=== PATIENT | female | born 2000 | race Asian ===

== ENCOUNTER → 2018-11-10 15:11 | Outpatient (CLI) | payer BC, SELFPAY ==
[2018-11-10 17:28] LABS: Urine N gonorrhoeae NOT DETECTED
[2018-11-10 17:31] LABS: Urine Chlamydia NOT DETECTED
== END ==
PROVIDERS: Visit Provider Physician Assistant
DX: N39.0 Urinary tract infection, site not specified (principal); R31.9 Hematuria, unspecified; R30.0 Dysuria
CPT/HCPCS: 87077; 87086; 87186; 87491; 87591

== ENCOUNTER 2020-11-24 12:39 | Emergency (ER) | payer BC, SELFPAY ==
[2020-11-24] VITALS (13 sets, daily range): BP systolic 123–154; BP diastolic 73–90; PULSE 62–91; RESP 16; TEMP 36.8; O2SAT 97–100; BMI 22.6
[2020-11-24 13:09] LABS: Add Manual Diff / Slide Review NO; Basophils Absolute Auto 100 /uL (0-100); Basophils Percent Auto 0.6 % (0-2); Eosinophils Absolute Auto 0 /uL (0-450); Eosinophils Percent Auto 0.1 % (2-4); Hematocrit 37.1 % (36-46); Hemoglobin 11.8 g/dL (12.0-16.0); Lymphocytes Absolute Auto 1000 /uL (1100-4500); Lymphocytes Percent Auto 8.2 % (25-40); Mean Corpuscular HGB Conc 31.9 % (30-36); Mean Corpuscular Hemoglobin 25.8 PG (26-34); Mean Corpuscular Volume 80.9 fL (80-100); Monocytes Absolute Auto 900 /uL (0-900); Monocytes Percent Auto 7.2 % (3-14); Neutrophils Absolute Auto 10700 /uL (1500-7000); Neutrophils Percent Auto 83.9 % (50-75); Platelet Count 289 X10^3/uL (150-400); Red Blood Cell Count 4.59 X10^6/uL (4.0-5.2); White Blood Cell Count 12.8 X10^3/uL (4.5-11.0)
[2020-11-24] MEDS: SODIUM CHLORIDE 0.9% 1,000 ML 1000 ML IV ×2 (13:13→14:03)
[2020-11-24 13:22] LABS: Alanine Aminotransferase 20 IU/L (<35); Albumin 4.4 g/dL (3.5-5.0); Albumin Globulin Ratio 1.3 (1.0-2.8); Alkaline Phosphatase 109 U/L (38-126); Aspartate Aminotransferase 36 IU/L (14-36); BUN Creatinine Ratio 11.7 (6-22); Bilirubin Total 0.5 mg/dL (0.2-1.3); Blood Urea Nitrogen 19 mg/dL (7-17); Calcium 9.8 mg/dL (8.4-10.2); Carbon Dioxide 23 mmol/L (22-32); Chloride 107 mmol/L (98-107); Estimated Glomerular Filt Rate 39.7 mL/min (>60); Globulin 3.5 g/dL (1.7-4.1); Glucose 107 mg/dL (70-100); HEMOLYSIS < 15 (0-50); Lipase 77 U/L (23-300); Potassium 3.9 mmol/L (3.4-5.1); Sodium 138 mmol/L (137-145); Total Protein 7.9 g/dL (6.3-8.2)
--- NOTE | 2020-11-24 13:36 | ED_ITS ---
HPI - Abdominal Pain <Al Elliott PA-C - Last Filed: 11/24/20 18:35> General Chief Complaint: Abdominal Pain Stated Complaint: Stomach Pain, Vomiting Time Seen by Provider: 11/24/20 12:46 Source: patient Mode of arrival: Ambulatory Limitations: no limitations History of Present Illness HPI narrative: Nat presents today with chief complaint of abdominal pain and nausea with vomiting that started abruptly this morning after she woke up. She reports that the abdominal pain was generalized at her cyst but seems to be more to the right side of her abdomen now. She has not experienced anything like this in the past. Her last menses was 3 weeks ago. She is currently on control. She denies any vaginal irritation, bleeding, fever, diarrhea, constipation, urinary symptoms, chest pain, cough or any other acute concerns or complaints at this time. She went to a walk-in clinic in [place] and was given some Zofran for her vomiting. This helped the nausea but they recommended that she come here for evaluation of appendicitis. Related Data Home Medications Medication Instructions Recorded Confirmed norethindrone acetate 1.5 1 tab PO DAILY 11/10/18 11/10/18 mg-ethinyl estradiol 30 mcg tablet (Junel) Previous Rx's Medication Instructions Recorded sulfamethoxazole 800 1 tab PO BID #14 tab 11/10/18 mg-trimethoprim 160 mg tablet (Bactrim DS) ondansetron 4 mg disintegrating 4 mg PO Q6H PRN #14 tab 11/24/20 tablet Allergies Allergy/AdvReac Type Severity Reaction Status Date / Time No Known Drug Allergies Allergy Verified 11/10/18 14:01 Review of Systems <Al Elliott PA-C - Last Filed: 11/24/20 18:35> Review of Systems Narrative: As per HPI Patient History <Al Elliott PA-C - Last Filed: 11/24/20 18:35> Social History Smoking Status: Never smoker Smoking Status: Never smoker Substance Use Type: does not use Exam <Al Elliott PA-C - Last Filed: 11/24/20 18:35> Narrative Exam Narrative: Exam Narrative: Const General: cooperative, healthy appearing, comfortable, no acute distress, well developed and well groomed Nutritional Appearance: average body habitus Orientation: alert and oriented x3 HENMT Head: normal to inspection and atraumatic Ears: hearing grossly normal bilaterally Nose: external nose normal and nares normal Face and sinus: normal facial exam Neck Neck: normal visual inspection and supple Resp Effort & Inspection: normal respiratory effort, able to speak in complete sen tences, no audible wheezes, not labored, no nasal flaring and no respiratory distress Cardiac Regular rate and rhythm, no discernible murmurs, rubs or gallops GI Normal bowel sounds, Nondistended, tender to palpation in the right mid and lower quadrants. Rebound tenderness noted. Negative Rovsing sign. No CVA tenderness noted. Neuro General: alert, oriented x3, gait normal, tone normal and moves all extremities Cognition: normal cognition Speech: speech normal Gait: normal gait Psych Appearance: grossly normal and well kempt Mental Status: mental status grossly normal Speech and Movement: speech and movement normal Mood: congruent mood Affect: normal affect Initial Vital Signs Initial Vital Signs: Vital Signs Pulse Rate 62 11/24/20 12:47 Blood Pressure 137/87 11/24/20 12:47 Pulse Oximetry 99 11/24/20 12:47 <Cristiano Talamantes DO - Last Filed: 11/24/20 18:46> Initial Vital Signs Initial Vital Signs: Vital Signs Pulse Rate 62 11/24/20 12:47 Blood Pressure 137/87 11/24/20 12:47 Pulse Oximetry 99 11/24/20 12:47 Course <Al Elliott PA-C - Last Filed: 11/24/20 18:35> Course Course Narrative: I spoke with Dr. Castillo with Nephrology regarding this patient. Presentation, laboratory evaluation, CT scan results and current situation was discussed. He recommended no antibiotic treatment at this time because there is no significant evidence of infection. He stated this is likely due to acute nausea and vomiting. Orders Ordered: ED Orders 11/24/20 12:57 Complete Blood Count AUTO DIFF Stat Comprehensive Metabolic Panel Stat Lipase Stat Test Serum,Qual Stat 11/24/20 13:40 CT abdomen pelvis w con Stat 11/24/20 14:35 Urinalysis and Microscopic Stat 11/24/20 16:22 COVID19 -Nasal swab/Pre-Proc Stat Discontinued Medications Sodium Chloride (Normal Saline 0.9%) 1,000 mls @ 1,000 mls/hr IV BOLUS ONE Stop: 11/24/20 14:02 Last Infusion: 11/24/20 14:01 Dose: 0 mls/hr Documented by: Admin: 11/24/20 13:13 Dose: 1,000 mls/hr Documented by: MINDY Sodium Chloride (Normal Saline 0.9%) 1,000 mls @ 1,000 mls/hr IV BOLUS ONE Stop: 11/24/20 14:58 Last Infusion: 11/24/20 15:53 Dose: 0 mls/hr Documented by: Admin: 11/24/20 14:03 Dose: 1,000 mls/hr Documented by: MINDY Morphine Sulfate (Morphine 2 Mg/Ml Inj) 2 mg IV Q4HR PRN PRN Reason: Pain, Moderate (4-6) Last Admin: 11/24/20 14:42 Dose: 2 mg Documented by: MINDY Morphine Sulfate (Morphine 2 Mg/Ml Inj) 2 mg IV Q4HR PRN PRN Reason: Pain, Moderate (4-6) Last Admin: 11/24/20 16:17 Dose: 2 mg Documented by: FRANCIA Vital Signs Vital signs: Vital Signs - 8 hr 11/24/20 12:47 11/24/20 12:59 11/24/20 13:00 Temperature 98.3 F Pulse Rate 62 65 63 Respiratory Rate 16 Blood Pressure 137/87 137/87 128/88 Pulse Oximetry 99 99 100 11/24/20 13:30 11/24/20 14:07 11/24/20 14:30 Temperature Pulse Rate 66 91 H 79 Respiratory Rate Blood Pressure 130/80 Pulse Oximetry 100 97 99 11/24/20 14:39 11/24/20 15:00 11/24/20 15:30 Temperature Pulse Rate 78 72 68 Respiratory Rate Blood Pressure 135/83 132/83 140/87 Pulse Oximetry 100 100 100 11/24/20 16:00 11/24/20 16:13 11/24/20 16:30 Temperature Pulse Rate 64 63 62 Respiratory Rate Blood Pressure 154/90 H 123/73 Pulse Oximetry 100 100 100 11/24/20 17:00 Temperature Pulse Rate 65 Respiratory Rate Blood Pressure 144/85 H Pulse Oximetry 99 <Cristiano Talamantes DO - Last Filed: 11/24/20 18:46> Orders Ordered: ED Orders 11/24/20 12:57 Complete Blood Count AUTO DIFF Stat Comprehensive Metabolic Panel Stat Lipase Stat Test Serum,Qual Stat 11/24/20 13:40 CT abdomen pelvis w con Stat 11/24/20 14:35 Urinalysis and Microscopic Stat 11/24/20 16:22 COVID19 -Nasal swab/Pre-Proc Stat Discontinued Medications Sodium Chloride (Normal Saline 0.9%) 1,000 mls @ 1,000 mls/hr IV BOLUS ONE Stop: 11/24/20 14:02 Last Infusion: 11/24/20 14:01 Dose: 0 mls/hr Documented by: Admin: 11/24/20 13:13 Dose: 1,000 mls/hr Documented by: MINDY Sodium Chloride (Normal Saline 0.9%) 1,000 mls @ 1,000 mls/hr IV BOLUS ONE Stop: 11/24/20 14:58 Last Infusion: 11/24/20 15:53 Dose: 0 mls/hr Documented by: Admin: 11/24/20 14:03 Dose: 1,000 mls/hr Documented by: MINDY Morphine Sulfate (Morphine 2 Mg/Ml Inj) 2 mg IV Q4HR PRN PRN Reason: Pain, Moderate (4-6) Last Admin: 11/24/20 14:42 Dose: 2 mg Documented by: MINDY Morphine Sulfate (Morphine 2 Mg/Ml Inj) 2 mg IV Q4HR PRN PRN Reason: Pain, Moderate (4-6) Last Admin: 11/24/20 16:17 Dose: 2 mg Documented by: FRANCIA Vital Signs Vital signs: Vital Signs - 8 hr 11/24/20 12:47 11/24/20 12:59 11/24/20 13:00 Temperature 98.3 F Pulse Rate 62 65 63 Respiratory Rate 16 Blood Pressure 137/87 137/87 128/88 Pulse Oximetry 99 99 100 11/24/20 13:30 11/24/20 14:07 11/24/20 14:30 Temperature Pulse Rate 66 91 H 79 Respiratory Rate Blood Pressure 130/80 Pulse Oximetry 100 97 99 11/24/20 14:39 11/24/20 15:00 11/24/20 15:30 Temperature Pulse Rate 78 72 68 Respiratory Rate Blood Pressure 135/83 132/83 140/87 Pulse Oximetry 100 100 100 11/24/20 16:00 11/24/20 16:13 11/24/20 16:30 Temperature Pulse Rate 64 63 62 Respiratory Rate Blood Pressure 154/90 H 123/73 Pulse Oximetry 100 100 100 11/24/20 17:00 Temperature Pulse Rate 65 Respiratory Rate Blood Pressure 144/85 H Pulse Oximetry 99 MDM - Abdominal Pain <Al Elliott PA-C - Last Filed: 11/24/20 18:35> Lab Data Result diagrams: 11/24/20 12:57 11/24/20 12:57 Labs: Lab Results 11/24/20 11/24/20 11/24/20 Range/Units 12:57 12:57 12:57 WBC 12.8 H (4.5-11.0) X10^3/uL RBC 4.59 (4.0-5.2) X10^6/uL Hgb 11.8 L (12.0-16.0) g/dL Hct 37.1 (36-46) % MCV 80.9 (80-100) fL MCH 25.8 L (26-34) PG MCHC 31.9 (30-36) % RDW 14.0 (11.6-14.8) % Plt Count 289 (150-400) X10^3/uL Neut % (Auto) 83.9 H (50-75) % Lymph % (Auto) 8.2 L (25-40) % [place] % (Auto) 7.2 (3-14) % Eos % (Auto) 0.1 L (2-4) % Baso % (Auto) 0.6 (0-2) % Neut # (Auto) 20123 H (9582-7917) /uL Lymph # (Auto) 1000 L (4676-2034) /uL Sutton # (Auto) 900 (0-900) /uL Eos # (Auto) 0 (0-450) /uL Baso # (Auto) 100 (0-100) /uL Sodium 138 (137-145) mmol/L Potassium 3.9 (3.4-5.1) mmol/L Chloride 107 (98-107) mmol/L Carbon Dioxide 23 (22-32) mmol/L BUN 19 H (7-17) mg/dL Creatinine 1.62 H (0.52-1.04) mg/dL Estimated GFR 39.7 L (>60) mL/min BUN/Creatinine Ratio 11.7 (6-22) Glucose 107 H (70-100) mg/dL Calcium 9.8 (8.4-10.2) mg/dL Total Bilirubin 0.5 (0.2-1.3) mg/dL AST 36 (14-36) IU/L ALT 20 (<35) IU/L Alkaline Phosphatase 109 (38-126) U/L Total Protein 7.9 (6.3-8.2) g/dL Albumin 4.4 (3.5-5.0) g/dL Globulin 3.5 (1.7-4.1) g/dL Albumin/Globulin Ratio 1.3 (1.0-2.8) Lipase 77 (23-300) U/L Serum , Qual Negative (Negative) Urine Color Urine Appearance Urine pH (4.5-8.0) Ur Specific [place] (1.000-1.035) Urine Protein (Negative) Urine Glucose (UA) (Negative) g/dL Urine Ketones (NEGATIVE) Urine Occult Blood (Negative) Urine Nitrate (Negative) Urine Bilirubin (NEGATIVE) Urine Urobilinogen (0.2) E.U./dL Ur Leukocyte Esterase (NEGATIVE) Urine RBC (0-5/HPF) Urine WBC (0-5/HPF) Ur Squamous Epith Cells (0-5/HPF) Urine Bacteria (None) Ur Culture Indicated? SARS-CoV-2 (PCR) (Negative) 11/24/20 11/24/20 Range/Units 14:35 16:22 WBC (4.5-11.0) X10^3/uL RBC (4.0-5.2) X10^6/uL Hgb (12.0-16.0) g/dL Hct (36-46) % MCV (80-100) fL MCH (26-34) PG MCHC (30-36) % RDW (11.6-14.8) % Plt Count (150-400) X10^3/uL Neut % (Auto) (50-75) % Lymph % (Auto) (25-40) % [place] % (Auto) (3-14) % Eos % (Auto) (2-4) % Baso % (Auto) (0-2) % Neut # (Auto) (5722-3765) /uL Lymph # (Auto) (7562-3817) /uL Sutton # (Auto) (0-900) /uL Eos # (Auto) (0-450) /uL Baso # (Auto) (0-100) /uL Sodium (137-145) mmol/L Potassium (3.4-5.1) mmol/L Chloride (98-107) mmol/L Carbon Dioxide (22-32) mmol/L BUN (7-17) mg/dL Creatinine (0.52-1.04) mg/dL Estimated GFR (>60) mL/min BUN/Creatinine Ratio (6-22) Glucose (70-100) mg/dL Calcium (8.4-10.2) mg/dL Total Bilirubin (0.2-1.3) mg/dL AST (14-36) IU/L ALT (<35) IU/L Alkaline Phosphatase (38-126) U/L Total Protein (6.3-8.2) g/dL Albumin (3.5-5.0) g/dL Globulin (1.7-4.1) g/dL Albumin/Globulin Ratio (1.0-2.8) Lipase (23-300) U/L Serum , Qual (Negative) Urine Color Yellow Urine Appearance Clear Urine pH 5.5 (4.5-8.0) Ur Specific [place] <=1.005 (1.000-1.035) Urine Protein Trace H (Negative) Urine Glucose (UA) Negative (Negative) g/dL Urine Ketones Negative (NEGATIVE) Urine Occult Blood Negative (Negative) Urine Nitrate Negative (Negative) Urine Bilirubin Negative (NEGATIVE) Urine Urobilinogen 0.2 (0.2) E.U./dL Ur Leukocyte Esterase Negative (NEGATIVE) Urine RBC None seen (0-5/HPF) Urine WBC 0-1/hpf (0-5/HPF) Ur Squamous Epith Cells 0-1 /hpf (0-5/HPF) Urine Bacteria Few (2-10) H (None) Ur Culture Indicated? Cult not indicated SARS-CoV-2 (PCR) Negative (Negative) Point of care testing: Urine Dip Bedside Urine Glucose Negative Bedside Urine Bilirubin - Negative Bedside Urine Ketone - Negative Urine Specific [place] 1.010 Bedside Urine Occult Blood - Negative Bedside Urine pH 6 Bedside Urine Protein - Negative Bedside Urine Urobilinogen - Negative Bedside Urine Nitrite - Negative Bedside Urine Leukocytes - Negative Esterase [facility] Narrative Medical decision making narrative: Differential diagnosis includes acute pyelonephritis, acute appendicitis, cholecystitis, acute pancreatitis, bowel obstruction, gastroenteritis. No obvious source of infection identified at this time. Urinalysis is within normal limits. She appears to have acute kidney inj ury. She has not had any episodes of nausea vomiting here in the emergency department and has gotten IV hydration for fluid replenishment. We will treat with anti emetics and she agreed to follow up in 2 days to get repeat labs to assess kidney function. Strict ER return precautions were discussed with the patient. <Cristiano Talamantes DO - Last Filed: 11/24/20 18:46> Lab Data Labs: Lab Results 11/24/20 11/24/20 11/24/20 Range/Units 12:57 12:57 12:57 WBC 12.8 H (4.5-11.0) X10^3/uL RBC 4.59 (4.0-5.2) X10^6/uL Hgb 11.8 L (12.0-16.0) g/dL Hct 37.1 (36-46) % MCV 80.9 (80-100) fL MCH 25.8 L (26-34) PG MCHC 31.9 (30-36) % RDW 14.0 (11.6-14.8) % Plt Count 289 (150-400) X10^3/uL Neut % (Auto) 83.9 H (50-75) % Lymph % (Auto) 8.2 L (25-40) % [place] % (Auto) 7.2 (3-14) % Eos % (Auto) 0.1 L (2-4) % Baso % (Auto) 0.6 (0-2) % Neut # (Auto) 72678 H (6620-9387) /uL Lymph # (Auto) 1000 L (4056-9301) /uL [place] # (Auto) 900 (0-900) /uL Eos # (Auto) 0 (0-450) /uL Baso # (Auto) 100 (0-100) /uL Sodium 138 (137-145) mmol/L Potassium 3.9 (3.4-5.1) mmol/L Chloride 107 (98-107) mmol/L Carbon Dioxide 23 (22-32) mmol/L BUN 19 H (7-17) mg/dL Creatinine 1.62 H (0.52-1.04) mg/dL Estimated GFR 39.7 L (>60) mL/min BUN/Creatinine Ratio 11.7 (6-22) Glucose 107 H (70-100) mg/dL Calcium 9.8 (8.4-10.2) mg/dL Total Bilirubin 0.5 (0.2-1.3) mg/dL AST 36 (14-36) IU/L ALT 20 (<35) IU/L Alkaline Phosphatase 109 (38-126) U/L Total Protein 7.9 (6.3-8.2) g/dL Albumin 4.4 (3.5-5.0) g/dL Globulin 3.5 (1.7-4.1) g/dL Albumin/Globulin Ratio 1.3 (1.0-2.8) Lipase 77 (23-300) U/L Serum , Qual Negative (Negative) Urine Color Urine Appearance Urine pH (4.5-8.0) Ur Specific [place] (1.000-1.035) Urine Protein (Negative) Urine Glucose (UA) (Negative) g/dL Urine Ketones (NEGATIVE) Urine Occult Blood (Negative) Urine Nitrate (Negative) Urine Bilirubin (NEGATIVE) Urine Urobilinogen (0.2) E.U./dL Ur Leukocyte Esterase (NEGATIVE) Urine RBC (0-5/HPF) Urine WBC (0-5/HPF) Ur Squamous Epith Cells (0-5/HPF) Urine Bacteria (None) Ur Culture Indicated? SARS-CoV-2 (PCR) (Negative) 11/24/20 11/24/20 Range/Units 14:35 16:22 WBC (4.5-11.0) X10^3/uL RBC (4.0-5.2) X10^6/uL Hgb (12.0-16.0) g/dL Hct (36-46) % MCV (80-100) fL MCH (26-34) PG MCHC (30-36) % RDW (11.6-14.8) % Plt Count (150-400) X10^3/uL Neut % (Auto) (50-75) % Lymph % (Auto) (25-40) % [place] % (Auto) (3-14) % Eos % (Auto) (2-4) % Baso % (Auto) (0-2) % Neut # (Auto) (4740-7623) /uL Lymph # (Auto) (1181-7081) /uL [place] # (Auto) (0-900) /uL Eos # (Auto) (0-450) /uL Baso # (Auto) (0-100) /uL Sodium (137-145) mmol/L Potassium (3.4-5.1) mmol/L Chloride (98-107) mmol/L Carbon Dioxide (22-32) mmol/L BUN (7-17) mg/dL Creatinine (0.52-1.04) mg/dL Estimated GFR (>60) mL/min BUN/Creatinine Ratio (6-22) Glucose (70-100) mg/dL Calcium (8.4-10.2) mg/dL Total Bilirubin (0.2-1.3) mg/dL AST (14-36) IU/L ALT (<35) IU/L Alkaline Phosphatase (38-126) U/L Total Protein (6.3-8.2) g/dL Albumin (3.5-5.0) g/dL Globulin (1.7-4.1) g/dL Albumin/Globulin Ratio (1.0-2.8) Lipase (23-300) U/L Serum , Qual (Negative) Urine Color Yellow Urine Appearance Clear Urine pH 5.5 (4.5-8.0) Ur Specific [place] <=1.005 (1.000-1.035) Urine Protein Trace H (Negative) Urine Glucose (UA) Negative (Negative) g/dL Urine Ketones Negative (NEGATIVE) Urine Occult Blood Negative (Negative) Urine Nitrate Negative (Negative) Urine Bilirubin Negative (NEGATIVE) Urine Urobilinogen 0.2 (0.2) E.U./dL Ur Leukocyte Esterase Negative (NEGATIVE) Urine RBC None seen (0-5/HPF) Urine WBC 0-1/hpf (0-5/HPF) Ur Squamous Epith Cells 0-1 /hpf (0-5/HPF) Urine Bacteria Few (2-10) H (None) Ur Culture Indicated? Cult not indicated SARS-CoV-2 (PCR) Negative (Negative) Point of care testing: Urine Dip Bedside Urine Glucose Negative Bedside Urine Bilirubin - Negative Bedside Urine Ketone - Negative Urine Specific [place] 1.010 Bedside Urine Occult Blood - Negative Bedside Urine pH 6 Bedside Urine Protein - Negative Bedside Urine Urobilinogen - Negative Bedside Urine Nitrite - Negative Bedside Urine Leukocytes - Negative Esterase Discharge Plan Departure Patient Disposition: Home Clinical Impression: FLORENCIA (acute kidney injury) Abdominal pain Qualifiers: Abdominal location: generalized Qualified Code(s): R10.84 - Generalized abdominal pain Nausea & vomiting Qualifiers: Vomiting type: unspecified Vomiting Intractability: non-intractable Qualified Code(s): R11.2 - Nausea with vomiting, unspecified Instructions: DI for Viral Gastroenteritis -- Adult Activity Restrictions/Additional Instructions: It was nice to meet you this afternoon. Please use the anti-nausea medication to help with your symptoms. If you experience worsening pain, fever, persistent nausea/vomiting, decreased urinary output, or any other acute concerns or complaints do not hesitate to return for reevaluation. Otherwise, I would like you to call your PCP and get your kidney function rechecked in 2 days. If you are not able to follow up with your PCP, then return here or go to the Walk-in clinic to get labs ordered. Thank you Al Elliott PA-C Prescriptions: New ondansetron 4 mg tablet,disintegrating 4 mg PO Q6H PRN (Reason: nausea and vomiting) Qty: 14 RF: 0 No Action June () 1.5-30 mg-mcg tablet 1 tab PO DAILY RF: 0 sulfamethoxazole-trimethoprim [Bactrim DS] 800-160 mg tablet 1 tab PO BID Qty: 14 RF: 0 Referrals: Lissett Laird MD [Primary Care Provider] - <Cristiano Talamantes, DO - Last Filed: 11/24/20 18:46> Cosign ED Attending Cosignature Attestation: Dr Talamantes Co-Sign Statement: I was available for consultation during this patient's emergency department visit. This chart is signed by myself for administrative purposes only. I did not have direct contact with this patient during this visit. They were seen independently by the APC.
--- NOTE | 2020-11-24 13:40 | DI.CT.S_ITS ---
PROCEDURE: CT ABDOMEN PELVIS W CON INDICATIONS: r/o appy TECHNIQUE: After the administration of intravenous contrast, axial sections acquired from the lung bases to the pubic symphysis. Coronal and sagittal reformats were performed. For radiation dose reduction, the following was used: automated exposure control, adjustment of mA and/or kV according to patient size. COMPARISON: None. FINDINGS: Image quality: Excellent. Lung bases: No airspace opacity or pleural effusion. Heart: No pericardial effusion. Normal heart size. ABDOMEN: Liver: Normal attenuation. Gallbladder: Normally distended without wall thickening or adjacent inflammatory change. Biliary ducts: Nondilated. Pancreas: No peripancreatic inflammatory changes or pancreatic ductal dilatation. Spleen: Normal size and appearance. Adrenal Glands: No adrenal nodule or mass. Kidneys and Ureters: Bilateral nonspecific perinephric fat stranding and fluid. Suggestion of faint striated nephrograms. Stomach and Bowel: No abnormally dilated loop of bowel. No pericolonic or mesenteric inflammatory changes. The appendix is normal in size and appearance. Ventral Wall: No hernias. Abdominal Nodes: No retroperitoneal or mesenteric adenopathy by size criteria. Vessels: Aorta and inferior vena cava are normal in size. PELVIS: Pelvic Organs: IUD in place. Ovaries unremarkable. Bladder: Unremarkable. Pelvic Nodes: No enlarged lymph nodes. Miscellaneous: No hernias are seen. Bones: Unremarkable. IMPRESSION: No findings of appendicitis. Mild perinephric fat stranding and small amount of perinephric fluid bilaterally, along with possible subtle striated nephrograms. Correlate for flank tenderness and urinalysis to exclude a potential pyelonephritis or another inflammatory renal process. Dictated by: Dennis Soliz M.D. on 11/24/2020 at 14:27 Approved by: Dennis Soliz M.D. on 11/24/2020 at 14:31
[2020-11-24 13:41] LABS: Pregnancy Test Serum,Qual Negative (Negative)
[2020-11-24] MEDS: MORPHINE 2 MG/ML INJ IV ×2 (14:42→16:17)
[2020-11-24 15:29] LABS: RBC Urine None Seen (0-5/HPF)
[2020-11-24 15:32] LABS: Appearance Urine UA CLEAR; Bilirubin Urine UA NEGATIVE (NEGATIVE); Color Urine UA YELLOW; Glucose Urine UA NEGATIVE (Negative); Ketones Urine UA NEGATIVE (NEGATIVE); Leukocyte Esterase Urine UA NEGATIVE (NEGATIVE); Nitrite Urine UA NEGATIVE (Negative); Occult Blood Urine UA NEGATIVE (Negative); Protein Urine UA TRACE (Negative); Specific Gravity Urine UA <=1.005 (1.000-1.035); Urobilinogen Urine UA 0.2 E.U./dL (0.2)
[2020-11-24 15:54] LABS: pH Urine UA 5.5 (4.5-8.0)
[2020-11-24 15:55] LABS: Bacteria Urine Few (2-10); Culture Indicated Urine Cult Not Indicated; Squamous Epithelial Cell Urine 0-1 /HPF (0-5/HPF); WBC Urine 0-1/HPF (0-5/HPF)
[2020-11-24 17:03] LABS: COVID19 -Nasal RAPID Negative (Negative)
== END 2020-11-24 17:19 | disposition home or self-care (01) ==
PROVIDERS: Emergency Provider Physician Assistant; PCP Family Medicine
DX: N17.9 Acute kidney failure, unspecified (principal); R10.84 Generalized abdominal pain; R11.2 Nausea with vomiting, unspecified; Z20.822 Contact with and (suspected) exposure to COVID-19
CPT/HCPCS: 36415; 74177; 80053; 81001; 81003; 83690; 84703; 85025; 87635; 96361; 96374; 96376; 99284; C9803; J2270

== ENCOUNTER 2020-11-27 00:41 | Emergency (ER) | payer BC, SELFPAY ==
[2020-11-27 01:09] VITALS: BP 146/79; PULSE 64; RESP 15; TEMP 36.6; O2SAT 100
[2020-11-27 01:50] LABS: Add Manual Diff / Slide Review NO; Basophils Absolute Auto 0 /uL (0-100); Basophils Percent Auto 0.5 % (0-2); Eosinophils Absolute Auto 100 /uL (0-450); Eosinophils Percent Auto 0.8 % (2-4); Hematocrit 36.4 % (36-46); Hemoglobin 11.7 g/dL (12.0-16.0); Lymphocytes Absolute Auto 1300 /uL (1100-4500); Lymphocytes Percent Auto 13.9 % (25-40); Mean Corpuscular Hemoglobin 26.1 PG (26-34); Mean Corpuscular Volume 81.5 fL (80-100); Monocytes Absolute Auto 1000 /uL (0-900); Monocytes Percent Auto 10.5 % (3-14); Neutrophils Absolute Auto 6900 /uL (1500-7000); Neutrophils Percent Auto 74.3 % (50-75); Platelet Count 265 X10^3/uL (150-400); Red Blood Cell Count 4.47 X10^6/uL (4.0-5.2); Red Cell Distribution Width 13.8 % (11.6-14.8); White Blood Cell Count 9.3 X10^3/uL (4.5-11.0)
--- NOTE | 2020-11-27 01:50 | ED.ABDPAIN ---
HPI - Abdominal Pain General Chief Complaint: Abdominal Pain Stated Complaint: stomach pain x3 days Time Seen by Provider: 11/27/20 01:46 Source: patient Mode of arrival: Ambulatory Limitations: no limitations History of Present Illness HPI narrative: Patient is a 20-year-old female who presents with right lower abdominal pain ongoing for last 3 days. She says it started around her periumbilical region and has now seems to be moving all over. She has significantly poor appetite she only took 2 bites of chicken McNuggets today. Not drinking fluids. No fever. No diarrhea. The car ride over here her and all movement hurts. Upon further investigation it appears the patient was seen and evaluated her 2 days ago for the same. At that time she had blood work and a CT. She was found have acute kidney injury 1.6. CT did not show any abnormality at time. She is given Zofran and instructed to follow up. Since then she has had increasing pain persistent vomiting which prompted her ED visit today. Related Data Home Medications Medication Instructions Recorded Confirmed norethindrone acetate 1.5 1 tab PO DAILY 11/10/18 11/10/18 mg-ethinyl estradiol 30 mcg tablet (Junel) Previous Rx's Medication Instructions Recorded sulfamethoxazole 800 1 tab PO BID #14 tab 11/10/18 mg-trimethoprim 160 mg tablet (Bactrim DS) ondansetron 4 mg disintegrating 4 mg PO Q6H PRN #14 tab 11/24/20 tablet ondansetron 4 mg disintegrating 4 mg PO Q8H PRN #10 tab 11/27/20 tablet Allergies Allergy/AdvReac Type Severity Reaction Status Date / Time No Known Drug Allergies Allergy Verified 11/10/18 14:01 Review of Systems Review of Systems Narrative: GENERAL: Denies chills, fatigue, malaise, fever, sweats, travel HEENT: Denies sinus pain, ear pain, sore throat, difficulty swallowing, neck pain RESPIRATORY: Denies dyspnea, cough, wheezing, hemoptysis, sputum. CARDIOVASCULAR: Denies chest pain, palpitations, orthopnea, edema GASTROINTESTINAL: See HPI : Denies dysuria, frequency, incontinence, hematuria, urinary retention, flank pain. MUSCULOSKELETAL: Denies weakness, joint pain, or bony pain SKIN: No rash, no erythema, no pruritus NEUROLOGIC: Denies weakness, dizziness, headache, numbness, change in speech, confusion PSYCHIATRIC: No concerning psychosocial issues. 12 point review of systems is negative except for those stated above and HPI Patient History Social History Smoking Status: Never smoker Smoking Status: Never smoker Substance Use Type: does not use Exam Initial Vital Signs Initial Vital Signs: Vital Signs Temperature 98 F 11/27/20 01:09 Pulse Rate 64 11/27/20 01:09 Respiratory Rate 15 11/27/20 01:09 Blood Pressure 146/79 H 11/27/20 01:09 Pulse Oximetry 100 11/27/20 01:09 GENERAL: Thin young 20-year-old female appears to be uncomfortable HEENT: Head atraumatic,EOMI, pupils reactive, face symmetric, moist mucous membranes CARDIOVASCULAR: Regular rate and rhythm without murmurs, rubs or gallops. RESPIRATORY: Breath sounds equal bilaterally, no wheezes rales or rhonchi. ABDOMEN: Soft, delete diffuse tenderness more so on right than left EXTREMITIES: Normal range of motion, no clubbing or edema. Neurovascularly intact NEUROLOGICAL: Alert and oriented x4.Normal gait and speech. SKIN: Warm, dry, no laceration, no petechiae, no rashes or lesions. Course Orders Ordered: ED Orders 11/27/20 01:40 Complete Blood Count AUTO DIFF Stat Comprehensive Metabolic Panel Stat Lipase Stat Test Serum,Qual Stat 11/27/20 02:59 XR acute abdomen series Stat Discontinued Medications Sodium Chloride (Normal Saline 0.9%) 1,000 mls @ 1,000 mls/hr IV BOLUS ONE Stop: 11/27/20 02:46 Last Infusion: 11/27/20 02:52 Dose: 0 mls/hr Documented by: Admin: 11/27/20 01:53 Dose: 1,000 mls/hr Documented by: ANDREZ Sodium Chloride (Normal Saline 0.9%) 1,000 mls @ 1,000 mls/hr IV BOLUS ONE Stop: 11/27/20 03:35 Last Infusion: 11/27/20 04:06 Dose: 0 mls/hr Documented by: Admin: 11/27/20 02:47 Dose: 1,000 mls/hr Documented by: SAMANTHA Morphine Sulfate (Morphine 2 Mg/Ml Inj) 2 mg IV NOW ONE Stop: 11/27/20 01:47 Last Admin: 11/27/20 01:54 Dose: 2 mg Documented by: ANDREZ Morphine Sulfate (Morphine 2 Mg/Ml Inj) 2 mg IV NOW ONE Stop: 11/27/20 03:36 Last Admin: 11/27/20 03:39 Dose: 2 mg Documented by: ERIC Ondansetron HCl (Ondansetron 4 Mg/2 Ml Inj) 4 mg IV NOW ONE Stop: 11/27/20 01:47 Last Admin: 11/27/20 01:54 Dose: 4 mg Documented by: ANDREZ Pantoprazole Sodium (Pantoprazole 40 Mg Vial) 40 mg IV NOW ONE Stop: 11/27/20 02:37 Last Admin: 11/27/20 02:47 Dose: 40 mg Documented by: SAMANTHA Vital Signs Vital signs: Vital Signs - 8 hr 11/27/20 01:09 11/27/20 03:30 11/27/20 04:58 Temperature 98 F Pulse Rate 64 77 72 Respiratory Rate 15 18 16 Blood Pressure 146/79 H 145/85 H 138/75 Pulse Oximetry 100 99 99 MDM - Abdominal Pain Lab Data Result diagrams: 11/27/20 01:40 11/27/20 01:40 Labs: Lab Results 11/27/20 11/27/20 11/27/20 Range/Units 01:40 01:40 01:40 WBC 9.3 (4.5-11.0) X10^3/uL RBC 4.47 (4.0-5.2) X10^6/uL Hgb 11.7 L (12.0-16.0) g/dL Hct 36.4 (36-46) % MCV 81.5 (80-100) fL MCH 26.1 (26-34) PG MCHC 32.0 (30-36) % RDW 13.8 (11.6-14.8) % Plt Count 265 (150-400) X10^3/uL Neut % (Auto) 74.3 (50-75) % Lymph % (Auto) 13.9 L (25-40) % [place] % (Auto) 10.5 (3-14) % Eos % (Auto) 0.8 L (2-4) % Baso % (Auto) 0.5 (0-2) % Neut # (Auto) 6900 (3695-6149) /uL Lymph # (Auto) 1300 (7669-6736) /uL Upson # (Auto) 1000 H (0-900) /uL Eos # (Auto) 100 (0-450) /uL Baso # (Auto) 0 (0-100) /uL Sodium 138 (137-145) mmol/L Potassium 3.6 (3.4-5.1) mmol/L Chloride 108 H (98-107) mmol/L Carbon Dioxide 19 L (22-32) mmol/L BUN 15 (7-17) mg/dL Creatinine 1.76 H (0.52-1.04) mg/dL Estimated GFR 36.1 L (>60) mL/min BUN/Creatinine Ratio 8.5 (6-22) Glucose 103 H (70-100) mg/dL Calcium 9.2 (8.4-10.2) mg/dL Total Bilirubin 0.4 (0.2-1.3) mg/dL AST 26 (14-36) IU/L ALT 17 (<35) IU/L Alkaline Phosphatase 82 (38-126) U/L Total Protein 7.4 (6.3-8.2) g/dL Albumin 4.1 (3.5-5.0) g/dL Globulin 3.3 (1.7-4.1) g/dL Albumin/Globulin Ratio 1.2 (1.0-2.8) Lipase 69 (23-300) U/L Serum , Qual Negative (Negative) Imaging Data Abdominal x-ray: My Impression: No free air, no obstruction no acute process Radiologist's Impression: Preliminary report no acute process in abdomen or chest MDM Narrative Medical decision making narrative: Patient is monitored in the emergency department his she is given morphine which seems to help with her pain and 2 L of IV fluids. Creatinine today is 1.7 slightly worse than previous. Bicarb today is 19, slightly lower than what it was previously giving her an anion gap of 11, which is not significant. I believe her acute kidney injury likely secondary to dehydration. She overall has diffuse abdominal pain every exam date few times anywhere I put she is quite tender. She has no localization in the right lower quadrant. At this time I do not think is beneficial to repeat her CT especially in the setting of her slightly worsened acute kidney injury. I have given her instructions on oral rehydration and importance of follow-up. I have also discussed with her to avoid NSAIDs at this time. Discharge Plan Departure Patient Disposition: Home Clinical Impression: Gastroenteritis, FLORENCIA (acute kidney injury), Acute dehydration Instructions: DI for Viral Gastroenteritis -- Adult Activity Restrictions/Additional Instructions: *You have been diagnosed with gastroenteritis, acute kidney injury *What to do: At this time have a virus, no antibiotics are needed. Your also found to have abnormal kidney numbers however I do think this is because you are dehydrated. It is important that you take small frequent sips of Gatorade or Gatorade like substance while you are not feeling well. You may increase your diet as tolerated. Also please avoid ibuprofen/Motrin/naproxen/Aleve/Advil and all other NSAIDs. *Continue to take medications as directed Zofran 4 mg every 8 hours if needed for nausea or vomiting--> SENT TO [facility] [place] Tylenol 1000 mg every 6 hours if needed for pain *Follow up with your primary care provider in 2-3 days *Return to ER if you should have worsening abdominal pain, persistent vomiting despite medication, fever his, dizziness lightheadedness, passing or any new, worsening or concerning symptoms Prescriptions: New ondansetron 4 mg tablet,disintegrating 4 mg PO Q8H PRN (Reason: nausea and vomiting) Qty: 10 RF: 0 No Action () 1.5-30 mg-mcg tablet 1 tab PO DAILY RF: 0 sulfamethoxazole-trimethoprim [Bactrim DS] 800-160 mg tablet 1 tab PO BID Qty: 14 RF: 0 ondansetron 4 mg tablet,disintegrating 4 mg PO Q6H PRN (Reason: nausea and vomiting) Qty: 14 RF: 0 Referrals: Lissett Laird MD [Primary Care Provider] -
[2020-11-27] MEDS: SODIUM CHLORIDE 0.9% 1,000 ML 1000 ML IV ×2 (01:53→02:47)
[2020-11-27] MEDS: MORPHINE 2 MG/ML INJ IV ×2 (01:54→03:39)
[2020-11-27] MEDS: ONDANSETRON 4 MG/2 ML INJ IV (01:54)
[2020-11-27 01:59] LABS: Alanine Aminotransferase 17 IU/L (<35); Albumin 4.1 g/dL (3.5-5.0); Albumin Globulin Ratio 1.2 (1.0-2.8); Alkaline Phosphatase 82 U/L (38-126); Aspartate Aminotransferase 26 IU/L (14-36); BUN Creatinine Ratio 8.5 (6-22); Bilirubin Total 0.4 mg/dL (0.2-1.3); Blood Urea Nitrogen 15 mg/dL (7-17); Calcium 9.2 mg/dL (8.4-10.2); Carbon Dioxide 19 mmol/L (22-32); Chloride 108 mmol/L (98-107); Estimated Glomerular Filt Rate 36.1 mL/min (>60); Globulin 3.3 g/dL (1.7-4.1); Glucose 103 mg/dL (70-100); HEMOLYSIS < 15 (0-50); Lipase 69 U/L (23-300); Potassium 3.6 mmol/L (3.4-5.1); Sodium 138 mmol/L (137-145); Total Protein 7.4 g/dL (6.3-8.2)
[2020-11-27 02:09] LABS: Pregnancy Test Serum,Qual Negative (Negative)
[2020-11-27] MEDS: PANTOPRAZOLE 40 MG VIAL IV (02:47)
--- NOTE | 2020-11-27 02:59 | DI.RAD.S_ITS ---
PROCEDURE: XR ACUTE ABDOMEN SERIES INDICATIONS: incrased ab pain TECHNIQUE: One view chest and two views of the abdomen were acquired. COMPARISON: None. FINDINGS: Surgical changes and devices: None. Chest: Lungs are clear. Heart size is normal. No pleural effusions. No pneumoperitoneum. Abdomen: Bowel gas pattern is normal. No suspicious calcifications. Visualized solid organ contours appear normal. Retained contrast in the colon from recent CT scan noted. Intrauterine device projects over the midline. Bones: No suspicious bony lesions. IMPRESSION: Unremarkable acute abdominal series Note: Final report is concordant with preliminary interpretation by [facility], [facility] Approved by: Mendez Hagen M.D. on 11/27/2020 at 7:05
[2020-11-27 03:30] VITALS: BP 145/85; PULSE 77; RESP 18; O2SAT 99
[2020-11-27 04:58] VITALS: BP 138/75; PULSE 72; RESP 16; O2SAT 99
== END 2020-11-27 05:07 | disposition home or self-care (01) ==
PROVIDERS: Emergency Provider Emergency Medicine; PCP Family Medicine
DX: K52.9 Noninfective gastroenteritis and colitis, unspecified (principal); N17.9 Acute kidney failure, unspecified; E86.0 Dehydration
CPT/HCPCS: 36415; 74022; 80053; 83690; 84703; 85025; 96361; 96374; 96375; 96376; 99284; C9113; J2270; J2405

== ENCOUNTER → 2020-11-30 10:23 | Outpatient (CLI) | payer BC, SELFPAY ==
--- NOTE | 2020-11-30 | DI.US.S_ITS ---
PROCEDURE: US RENAL COMPLETE INDICATIONS: ACUTE RENAL DISEASE TECHNIQUE: Real-time scanning was performed of the kidneys and bladder, with image documentation. COMPARISON: None. FINDINGS: Kidneys: Kidneys are normal in size. Right kidney measures 10.9 cm long; left kidney measures 11.7 cm long. Right renal cortical thickness is 1.7 cm; left renal cortical thickness is 1.8 cm. Renal cortical echotexture is normal. No hydronephrosis or nephrolithiasis. No suspicious solid mass lesions. Bladder: Pre-void bladder volume is 228 mL. Post-void residual is 0 mL. Pre-void images demonstrate no intraluminal masses or stones. On pre-void images, bilateral ureteral jets are noted with color Doppler interrogation. (Of note, ureteral jets may not be detectable in up to 25% of cases due to insufficient differences in specific gravity between ureteral and bladder urine). Miscellaneous: No free pelvic fluid. IMPRESSION: Unremarkable ultrasound examination of bilateral kidneys and urinary bladder. Dictated by: Shaheed Birmingham M.D. on 11/30/2020 at 11:44 Approved by: Shaheed Birmingham M.D. on 11/30/2020 at 11:44
== END ==
PROVIDERS: PCP Family Medicine; Referring Provider Family Medicine; Visit Provider Family Medicine
DX: N28.9 Disorder of kidney and ureter, unspecified (principal)
CPT/HCPCS: 76770

== ENCOUNTER → 2022-07-30 10:27 | Outpatient (CLI) | payer OTHER, MEDICAID, SELFPAY ==
[2022-07-30 11:52] LABS: Add Manual Diff / Slide Review NO; Basophils Absolute Auto 100 /uL (0-100); Basophils Percent Auto 1.4 % (0-2); Eosinophils Absolute Auto 100 /uL (0-450); Eosinophils Percent Auto 2.3 % (2-4); Hematocrit 34.6 % (36-46); Hemoglobin 10.9 g/dL (12.0-16.0); Lymphocytes Absolute Auto 1800 /uL (1100-4500); Lymphocytes Percent Auto 30.5 % (25-40); Mean Corpuscular HGB Conc 31.5 % (30-36); Mean Corpuscular Hemoglobin 22.6 PG (26-34); Mean Corpuscular Volume 71.8 fL (80-100); Monocytes Absolute Auto 400 /uL (0-900); Monocytes Percent Auto 6.7 % (3-14); Neutrophils Absolute Auto 3600 /uL (1500-7000); Neutrophils Percent Auto 59.1 % (50-75); Platelet Count 313 X10^3/uL (150-400); Red Blood Cell Count 4.83 X10^6/uL (4.0-5.2); Red Cell Distribution Width 16.9 % (11.6-14.8)
[2022-07-30 12:05] LABS: Alanine Aminotransferase 20 IU/L (<35); Albumin 4.4 g/dL (3.5-5.0); Albumin Globulin Ratio 1.2 (1.0-2.8); Alkaline Phosphatase 115 U/L (38-126); Aspartate Aminotransferase 27 IU/L (14-36); BUN Creatinine Ratio 20.6 (6-22); Bilirubin Total 0.4 mg/dL (0.2-1.3); Blood Urea Nitrogen 14 mg/dL (7-17); Calcium 8.9 mg/dL (8.4-10.2); Carbon Dioxide 26 mmol/L (22-32); Chloride 103 mmol/L (98-107); Cholesterol 259 mg/dL (140-199); Estimated Glomerular Filt Rate > 60 mL/min (>60); Globulin 3.8 g/dL (1.7-4.1); Glucose 92 mg/dL (70-100); HDL Cholesterol 76 mg/dL (40-60); HEMOLYSIS < 15 (0-50); LDL Cholesterol Calculated 165 mg/dL (<100); Potassium 4.1 mmol/L (3.4-5.1); Sodium 137 mmol/L (137-145); Total Protein 8.2 g/dL (6.3-8.2); Triglycerides 92 mg/dL (35-150)
[2022-07-30 16:28] LABS: HEMOLYSIS 30 (0-50); Iron 28 ug/dL (37-170)
[2022-07-30 16:39] LABS: Percent Iron Saturation 9 % (15-50); Total Iron Binding Capacity 316 ug/dL (265-497); Transferrin 334 mg/dL (206-381)
[2022-07-30 23:22] LABS: Ferritin 7 ng/mL (6-137)
[2022-07-30 23:36] LABS: Vitamin B12 328 pg/mL (239-931)
== END ==
PROVIDERS: PCP Family Medicine; Referring Provider Family Medicine; Visit Provider Family Medicine
DX: N28.9 Disorder of kidney and ureter, unspecified (principal)
CPT/HCPCS: 36415; 80053; 80061; 82607; 82728; 83540; 83550; 85025

== ENCOUNTER 2023-07-15 00:37 | Emergency (ER) | payer OTHER, SELFPAY ==
[2023-07-15] VITALS (9 sets, daily range): BP systolic 116–146; BP diastolic 61–83; PULSE 81–91; RESP 16–18; TEMP 36.1; O2SAT 98–100; BMI 25.6
--- NOTE | 2023-07-15 00:47 | ED_ITS ---
HPI - Abdominal Pain General Chief Complaint: Urogenital-Female Stated Complaint: abd pain, blood in urine Time Seen by Provider: 07/15/23 00:39 Source: patient, RN notes reviewed and old records reviewed Mode of arrival: Ambulatory Limitations: no limitations History of Present Illness HPI narrative: 22-year-old female with reported history of kidney stone with complaint of sudden onset of left flank pain radiating to the front. She states she has had kidney stones in the past that this feels somewhat similar. She denies fevers or chills. She has had nausea but no vomiting. She states she was feeling normal before. Patient states no dysuria, urgency or frequency. She states a little bit of hematuria although she also currently menstruating. Denies any changes to bowel movements. No black or bloody stools. Patient has not taken anything for pain. She denies any prior surgeries. No known drug allergies. Related Data Home Medications Medication Instructions Recorded Confirmed norethindrone acetate 1.5 1 tab PO DAILY 11/10/18 11/10/18 mg-ethinyl estradiol 30 mcg tablet (Junel) Previous Rx's Medication Instructions Recorded sulfamethoxazole 800 1 tab PO BID #14 tabs 11/10/18 mg-trimethoprim 160 mg tablet (Bactrim DS) ondansetron 4 mg disintegrating 4 mg PO Q6H PRN nausea and 11/24/20 tablet vomiting #14 tabs ondansetron 4 mg disintegrating 4 mg PO Q8H PRN nausea and 11/27/20 tablet vomiting #10 tabs cyclobenzaprine 5 mg tablet 5 mg PO DAILY #20 tabs 09/09/22 oxycodone 5 mg tablet 5 mg PO Q6H PRN pain #10 tabs 07/15/23 tamsulosin 0.4 mg capsule (Flomax) 0.4 mg PO BEDTIME #7 caps 07/15/23 Allergies Allergy/AdvReac Type Severity Reaction Status Date / Time No Known Drug Allergies Allergy Verified 09/09/22 12:13 Review of Systems Review of Systems ROS Unobtainable: All systems reviewed & are unremarkable except as noted in HPI and below Patient History Social History Smoking Status: Never smoker Smoking Status: Never smoker Substance Use Type: does not use Exam Narrative Exam Narrative: GENERAL: Alert and oriented x three, female in moderate distress. HEENT: Head normocephalic, atraumatic, EOMI, pupils reactive, face symmetric, moist mucous membranes NECK: Supple, full range of motion CARDIOVASCULAR: Regular rate and rhythm without murmurs, rubs or gallops. RESPIRATORY: Breath sounds equal bilaterally, no wheezes rales or rhonchi. ABDOMEN: Soft, mild left-sided tenderness. Normoactive bowel sounds all 4 quadrants. No guarding or rebound, rigidity, no mass : No CVA tenderness EXTREMITIES: Normal range of motion, no clubbing or edema. Neurovascularly intact NEUROLOGICAL: Cranial nerves II through XII grossly intact. Moving all extremities SKIN: Warm, dry, no petechiae, no rashes or lesions. Initial Vital Signs Initial Vital Signs: Vital Signs Temperature 97 F L 07/15/23 00:47 Pulse Rate 91 H 07/15/23 00:47 Respiratory Rate 16 07/15/23 00:47 Blood Pressure 146/81 H 07/15/23 00:47 Pulse Oximetry 98 07/15/23 00:47 Oxygen Delivery Method Room Air 07/15/23 00:47 Course Orders Ordered: ED Orders 07/15/23 00:49 Urine Microscopic Stat 07/15/23 01:15 CBC Auto Diff [Complete Blood Count AUTO DIFF] Stat CMP [Comprehensive Metabolic Panel] Stat Lipase Stat 07/15/23 02:07 CT kidney ureter bladder (KUB) Stat Ondansetron HCl (Ondansetron 4 Mg/2 Ml Inj) 4 mg IV Q6HR PRN PRN Reason: Nausea And Vomiting Last Admin: 07/15/23 01:10 Dose: 4 mg Discontinued Medications Sodium Chloride (Normal Saline 0.9%) 1,000 mls @ 1,000 mls/hr IV BOLUS ONE Stop: 07/15/23 02:04 Last Titration: 07/15/23 02:26 Dose: 0 mls/hr Lidocaine HCl 5 ml/ Sodium (Chloride) 55 mls @ 330 mls/hr IV NOW ONE Stop: 07/15/23 01:35 Last Infusion: 07/15/23 01:56 Dose: Infused Ketorolac Tromethamine (Ketorolac 30 Mg/Ml Vial) 15 mg IV NOW ONE Stop: 07/15/23 00:59 Last Admin: 07/15/23 01:10 Dose: 15 mg Morphine Sulfate (Morphine 4 Mg/Ml Inj) 4 mg IV NOW ONE Stop: 07/15/23 02:08 Last Admin: 07/15/23 02:24 Dose: 4 mg Oxycodone/Acetaminophen (Oxycodone/Apap 5/325 Prepack) 1 bottle MISC DIRECTED ONE Stop: 07/15/23 03:08 Last Admin: 07/15/23 03:15 Dose: 1 bottle Tamsulosin HCl (Tamsulosin 0.4 Mg Capsule) 0.4 mg PO NOW ONE Stop: 07/15/23 03:03 Last Admin: 07/15/23 03:15 Dose: 0.4 mg Vital Signs Vital signs: Vital Signs - 8 hr 07/15/23 00:47 07/15/23 01:21 07/15/23 01:30 Temperature 97 F L Pulse Rate 91 H 83 Respiratory Rate 16 Blood Pressure 146/81 H 144/83 H Pulse Oximetry 98 100 Oxygen Delivery Method Room Air Room Air 07/15/23 02:00 07/15/23 02:00 07/15/23 02:26 Temperature Pulse Rate 82 81 Respiratory Rate 18 Blood Pressure 116/61 Pulse Oximetry 100 100 Oxygen Delivery Method 07/15/23 02:32 07/15/23 02:33 07/15/23 03:00 Temperature Pulse Rate 85 83 Respiratory Rate Blood Pressure 122/73 Pulse Oximetry 100 99 Oxygen Delivery Method Room Air 07/15/23 03:00 07/15/23 03:15 07/15/23 03:15 Temperature Pulse Rate 86 Respiratory Rate Blood Pressure 131/83 119/66 Pulse Oximetry 99 Oxygen Delivery Method MDM - Abdominal Pain Lab Data 07/15/23 01:15 07/15/23 01:15 Labs: Lab Results 07/15/23 07/15/23 Range/Units 00:49 01:15 WBC 10.4 (4.5-11.0) X10^3/uL RBC 4.71 (4.0-5.2) X10^6/uL Hgb 10.6 L (12.0-16.0) g/dL Hct 33.6 L (36-46) % MCV 71.4 L (80-100) fL MCH 22.6 L (26-34) PG MCHC 31.6 (30-36) % RDW 16.2 H (11.6-14.8) % Plt Count 357 (150-400) X10^3/uL Neut % (Auto) 53.0 (50-75) % Lymph % (Auto) 38.3 (25-40) % [place] % (Auto) 7.0 (3-14) % Eos % (Auto) 0.8 L (2-4) % Baso % (Auto) 0.9 (0-2) % Neut # (Auto) 5500 (6145-6794) /uL Lymph # (Auto) 4000 (7988-0651) /uL Forrest # (Auto) 700 (0-900) /uL Eos # (Auto) 100 (0-450) /uL Baso # (Auto) 100 (0-100) /uL Sodium 137 (137-145) mmol/L Potassium 3.3 L (3.4-5.1) mmol/L Chloride 107 (98-107) mmol/L Carbon Dioxide 21 L (22-32) mmol/L BUN 8 (7-17) mg/dL Creatinine 0.61 (0.52-1.04) mg/dL Estimated GFR > 60 (>60) mL/min BUN/Creatinine Ratio 13.1 (6-22) Glucose 121 H (70-100) mg/dL Calcium 8.9 (8.4-10.2) mg/dL Total Bilirubin 0.3 (0.2-1.3) mg/dL AST 28 (14-36) IU/L ALT 20 (<35) IU/L Alkaline Phosphatase 96 (38-126) U/L Total Protein 7.6 (6.3-8.2) g/dL Albumin 4.1 (3.5-5.0) g/dL Globulin 3.5 (1.7-4.1) g/dL Albumin/Globulin Ratio 1.2 (1.0-2.8) Lipase 103 (23-300) U/L Urine RBC 5-10/hpf H (0-5/HPF) Urine WBC None seen (0-5/HPF) Ur Squamous Epith Cells 0-1 /hpf (0-5/HPF) Urine Bacteria Occasional (0-1) (None) Urine Mucus 1+ H (Negative) Ur Culture Indicated? Cult not indicated Vol Urine Centrifuged 10ml (spun) Point of care testing: Point of Care Testing Test Results Negative Urine Dip Bedside Urine Glucose Negative Bedside Urine Bilirubin - Negative Bedside Urine Ketone - Negative Urine Specific [place] 1.020 Bedside Urine Occult Blood +++ Bedside Urine pH 6.0 Bedside Urine Protein - Negative Bedside Urine Urobilinogen - Negative Bedside Urine Nitrite - Negative Bedside Urine Leukocytes - Negative Esterase Imaging Data CT scan - abdomen/pelvis: Radiologist's Impression: Moderate periureteral edema and mild hydro and hydroureter on the left side, stone is present in the distal left ureter just above the level vesicoureteral junction measures 2 mm in diameter additional stone seen in the left collecting system no obstruction of the right. IUDs in place right arm appears to be moderately low possibly embedded within mid body myometrium otherwise position unremarkable and no acute abnormality of the uterus appreciated. Chronic displacement or right arm of the IUD unchanged since 2020 no acute abnormality of the uterus. MDM Narrative Medical decision making narrative: 22-year-old female with reported prior kidney stones. Also noted to have an FLORENCIA in the past suspected to be from dehydration. Patient's symptoms seem most consistent with kidney stone. She has not had any dysuria, urgency or frequency. She is currently menstruating but pain is mostly in the left flank wrapping around to the front. Patient's urine is negative, point of care urine is positive for blood, no nitrates or leukocyte esterase, microscopy shows 5-10 RBCs no white cells, 1 squamous, occasional bacteria. Blood could be hematuria or secondary to menstruation Labs show white count of 10 hemoglobin of 10.6 with microcytosis similar to July 2022, normal platelets. Sodium 137 potassium 3 3 chloride of 107 CO2 of 21 BUN 8 creatinine 0.61, glucose of 121 with normal LFTs negative lipase. Patient was given Toradol, Zofran, had minimal improvement in pain given a dose of lidocaine IV. On recheck, patient still quite uncomfortable. Given additional dose of pain medication and she is much more comfortable, CT KUB as patient requiring multiple doses of pain medication to evaluate for other causes or significantly large stone. Also reviewed patient's labs she is aware of her anemia and follows with her physician for this. CT shows 2 mm stone in the left distal ureter close the vesicoureteral junction. IUD is noted to be slightly low chronic displacement unchanged since 2020. Reviewed findings with patient. Plan for follow-up as needed, Flomax and pain management. Discussed return precautions all questions answered. Discharge Plan Departure Patient Disposition: Home Clinical Impression: Kidney stone on left side Instructions: DI for Kidney Stones Activity Restrictions/Additional Instructions: Follow up if your symptoms are not improving in the next 1-2 days. Contact is included below. You have a kidney in the left close to the bladder, the stone will likely pass. Your labs do show that you are anemic but appears to be consistent with prior labs. Take Flomax 1 tablet daily until gone. You may take Tylenol up to a 1000 mg every 6 hours and/or ibuprofen up to 600 mg every 6 hours. You may take narcotic pain medication 1-2 tablets every 6 hours as needed. This medication can make you sleepy do not drive, perform hazardous activities or make any major decisions while taking it. This medication will make you constipated please take a stool softener once to twice daily until stools are soft and regular. Prescription sent to [facility]. Return if you are having fevers, rapidly worsening symptoms, persistent vomiting, lightheadedness or passing out or other new or concerning changes. Prescriptions: New tamsulosin [Flomax] 0.4 mg capsule 0.4 mg PO BEDTIME Qty: 7 0RF oxycodone 5 mg tablet 5 mg PO Q6H PRN (Reason: pain) Qty: 10 0RF Rx Instructions: You may take 1-2 tablets every 6 hours as needed for pain. No Action () 1.5-30 mg-mcg tablet 1 tab PO DAILY sulfamethoxazole-trimethoprim [Bactrim DS] 800-160 mg tablet 1 tab PO BID Qty: 14 0RF cyclobenzaprine 5 mg tablet 5 mg PO DAILY Qty: 20 0RF ondansetron 4 mg tablet,disintegrating 4 mg PO Q6H PRN (Reason: nausea and vomiting) Qty: 14 0RF ondansetron 4 mg tablet,disintegrating 4 mg PO Q8H PRN (Reason: nausea and vomiting) Qty: 10 0RF Referrals: Rick Henry MD [Physician] - Lissett Laird MD [Primary Care Provider] - Stand Alone Forms: Patient Portal/API, Work Release Note
[2023-07-15 01:01] LABS: Urine Volume 10mL (spun)
[2023-07-15 01:02] LABS: Bacteria Urine Occasional (0-1); Mucus Urine 1+ (Negative); RBC Urine 5-10/HPF (0-5/HPF); Squamous Epithelial Cell Urine 0-1 /HPF (0-5/HPF); WBC Urine None Seen (0-5/HPF)
[2023-07-15 01:03] LABS: Culture Indicated Urine Cult Not Indicated
[2023-07-15] MEDS: SODIUM CHLORIDE 0.9% 1,000 ML 1000 ML IV (01:08)
[2023-07-15] MEDS: ONDANSETRON 4 MG/2 ML INJ IV (01:10)
[2023-07-15] MEDS: KETOROLAC 30 MG/ML VIAL 15 MG IV (01:10)
[2023-07-15 01:21] LABS: Add Manual Diff / Slide Review NO; Basophils Absolute Auto 100 /uL (0-100); Basophils Percent Auto 0.9 % (0-2); Eosinophils Absolute Auto 100 /uL (0-450); Eosinophils Percent Auto 0.8 % (2-4); Hematocrit 33.6 % (36-46); Hemoglobin 10.6 g/dL (12.0-16.0); Lymphocytes Absolute Auto 4000 /uL (1100-4500); Lymphocytes Percent Auto 38.3 % (25-40); Mean Corpuscular HGB Conc 31.6 % (30-36); Mean Corpuscular Hemoglobin 22.6 PG (26-34); Mean Corpuscular Volume 71.4 fL (80-100); Monocytes Absolute Auto 700 /uL (0-900); Neutrophils Absolute Auto 5500 /uL (1500-7000); Platelet Count 357 X10^3/uL (150-400); Red Blood Cell Count 4.71 X10^6/uL (4.0-5.2); Red Cell Distribution Width 16.2 % (11.6-14.8); White Blood Cell Count 10.4 X10^3/uL (4.5-11.0)
[2023-07-15 01:31] LABS: Albumin 4.1 g/dL (3.5-5.0); Albumin Globulin Ratio 1.2 (1.0-2.8); Alkaline Phosphatase 96 U/L (38-126); Aspartate Aminotransferase 28 IU/L (14-36); BUN Creatinine Ratio 13.1 (6-22); Bilirubin Total 0.3 mg/dL (0.2-1.3); Blood Urea Nitrogen 8 mg/dL (7-17); Calcium 8.9 mg/dL (8.4-10.2); Carbon Dioxide 21 mmol/L (22-32); Chloride 107 mmol/L (98-107); Estimated Glomerular Filt Rate > 60 mL/min (>60); Globulin 3.5 g/dL (1.7-4.1); Glucose 121 mg/dL (70-100); HEMOLYSIS < 15 (0-50); Potassium 3.3 mmol/L (3.4-5.1); Sodium 137 mmol/L (137-145); Total Protein 7.6 g/dL (6.3-8.2)
[2023-07-15] MEDS: LIDOCAINE 2% (PF) 5 ML in SODIUM CHLORIDE 0.9% 50 ML 330 ML IV (01:40)
[2023-07-15 01:45] LABS: Alanine Aminotransferase 20 IU/L (<35); Lipase 103 U/L (23-300)
--- NOTE | 2023-07-15 02:07 | DI.CT.S_ITS ---
PROCEDURE: CT KIDNEY URETER BLADDER (KUB) INDICATIONS: l flank pain TECHNIQUE: Axial sections were acquired from the lung bases to the pubic symphysis. Coronal and sagittal reformats were performed. For radiation dose reduction, the following was used: automated exposure control, adjustment of mA and/or kV according to patient size. COMPARISON: US, US RENAL COMPLETE, 11/30/2020, 10:02. [facility], CT, CT ABDOMEN PELVIS W CON, 11/24/2020, 14:00. FINDINGS: Image quality: Diagnostic. Lower Chest: Lung bases are clear. Small hiatal hernia.. URINARY: Right Kidney: 1 mm nonobstructive stone. No hydronephrosis. Right Ureter: No hydroureter. Left Kidney: Mild hydronephrosis. There are 2 1 mm nonobstructive stone in the inferior pole. Left Ureter: A 2 mm obstructive stone at the left UVJ. Bladder: Normal wall thickness. No stones. ABDOMEN: Liver: No contour-deforming solid mass. Gallbladder: No radiopaque gallstones or wall thickening. Biliary ducts: No biliary dilation. Pancreas: No ductal dilation. Spleen: Size is within normal limits. Adrenal Glands: No adrenal nodules. Stomach and Bowel: Normal bowel caliber, without significant wall thickening. Normal appendix. Peritoneum: No abnormal intraperitoneal fluid. No free air. Ventral Wall: No hernia. Abdominal Nodes: No enlarged retroperitoneal or mesenteric lymph nodes. Vessels: Aorta and inferior vena cava are normal in size. PELVIS: Pelvic Organs: Unremarkable. Pelvic Nodes: Unremarkable. Miscellaneous: No inguinal hernias are seen. Bones: Unremarkable. IMPRESSION: 1. There is a 2 mm obstructive stone at the left UVJ causing mild hydronephrosis. 2. Bilateral nonobstructive renal calculi. 3. IUD in uterus. Please confirm desired position. No significant discrepancy with the [facility] shift lead radiology preliminary report. No significant discrepancy with the veterinary hospital shift lead radiology preliminary report. Dictated by: Erwin Bill M.D. on 07/15/2023 at 7:35 Approved by: Erwin Bill M.D. on 07/15/2023 at 7:41
[2023-07-15] MEDS: MORPHINE 4 MG/ML INJ IV (02:24)
[2023-07-15] MEDS: OXYCODONE/APAP 5/325 PREPACK 1 BOTTLE MISC (03:15)
[2023-07-15] MEDS: TAMSULOSIN 0.4 MG CAPSULE PO (03:15)
== END 2023-07-15 03:23 | disposition home or self-care (01) ==
PROVIDERS: Emergency Provider Emergency Medicine; PCP Family Medicine
DX: N20.0 Calculus of kidney (principal); Z87.442 Personal history of urinary calculi
CPT/HCPCS: 74176; 80053; 81003; 81015; 81025; 83690; 85025; 96365; 96375; 99284; J1885; J2270; J2405